=== PATIENT | male | born 1990 | race Two or more races ===

== ENCOUNTER 2019-06-30 23:30 | Emergency (ER) | payer SELFPAY ==
[~2019-06-30] VITALS: Ht 170.2 cm; Wt 79.4 kg
[2019-06-30 23:57] VITALS: BP 134/83
--- NOTE | 2019-06-30 23:57 | NUR ---
PT AAOX4. BIB MOTHER FOR C/O DIZZINESS AND HEADACE S/P FALLING DOWN THE STAIRS. -KO. VSS. NO NEURO DEFICIT. AWAITING MD FOR EVAL.
[2019-07-01] MEDS ORDERED: IBUPROFEN 600 MG TABLET PO ONE ×2 (01:18→01:30)
--- NOTE | 2019-07-01 01:21 | NUR ---
Patient discharged to home in stable condition. Written and verbal after care instructions given. Patient verbalizes understanding of instruction and RX. vss. Pt ambualted with steady gait. No acute distress noted.
== END 2019-07-01 01:22 | disposition home or self-care (01) ==
LOC: ER 23:30
DX: S06.0X0A Concussion without loss of consciousness, initial encounter (principal); W01.0XXA Fall on same level from slipping, tripping and stumbling without subsequent striking against object, initial encounter; Y93.89 Activity, other specified; Y92.89 Other specified places as the place of occurrence of the external cause; Y99.8 Other external cause status
CPT/HCPCS: 70450; 99284; A6403